=== PATIENT | male | born 1990 | race Caucasian/White ===

== ENCOUNTER 2016-12-15 11:35 | Emergency (ER) | payer OTHER ==
[~2016-12-15] VITALS: Ht 182.9 cm; Wt 65.0 kg
[2016-12-15 11:38] VITALS: BP 118/80; PULSE 92; RESP 24; TEMP 98; O2SAT 97
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
[2016-12-15] MEDS ORDERED: KETOROLAC TROMETHAMINE 30 MG/ML (IVP) VIAL IV PUSH ONE (12:15)
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
[2016-12-15 12:42] LABS: AUTOMATED NEUTROPHIL # 4.3 TH/MM3 (1.8-7.7); BASOPHIL % 0.3 % (0.0-2.0); EOSINOPHIL % 0.3 % (0.0-4.0); HEMATOCRIT 40.3 % (39.0-51.0); LYMPH % 19.7 % (9.0-44.0); LYMPHOCYTE # 1.2 TH/MM3 (1.0-4.8); MEAN CELL VOLUME 91.5 FL (80.0-100.0); MEAN CORPUSCULAR HEMOGLOBIN 32.4 PG (27.0-34.0); MEAN CORPUSCULAR HGB CONC 35.4 % (32.0-36.0); MONO % 10.8 % (0.0-8.0); NEUT % 68.9 % (16.0-70.0); PLATELET COUNT 98 TH/MM3 (150-450); RED BLOOD COUNT 4.41 MIL/MM3 (4.50-5.90); RED CELL DISTRIBUTION WIDTH 12.9 % (11.6-17.2); WHITE BLOOD COUNT 6.2 TH/MM3 (4.0-11.0)
[2016-12-15 12:46] LABS: HEMO FLAGS AUTO DIFF
[2016-12-15 13:12] LABS: PLATELET ESTIMATE SMEAR LOW (NORMAL)
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
[2016-12-15 13:13] LABS: PLATELET MORPHOLOGY NORMAL (NORMAL)
[2016-12-15 13:15] LABS: ALKALINE PHOSPHATASE 66 U/L (45-117); BLOOD UREA NITROGEN 10 MG/DL (7-18); TOTAL BILIRUBIN ADULT 0.7 MG/DL (0.2-1.0)
[2016-12-15 13:17] LABS: ALT (GPT) 78 U/L (12-78); ANION GAP 6 MEQ/L (5-15); AST (GOT) 50 U/L (15-37); BICARBONATE 29.7 MEQ/L (21.0-32.0); CHLORIDE 104 MEQ/L (98-107); GLOMERULAR FILTRATION RATE 90 ML/MIN (>89); SCAN/DIFF AUTO DIFF CONFIRMED; SODIUM (NA) 140 MEQ/L (136-145)
[2016-12-15] MEDS ORDERED: IOHEXOL 350 MG/ML 10 ML VIAL (for RAD DIAG) IV ONE (13:17)
[2016-12-15 13:19] LABS: POTASSIUM 3.9 MEQ/L (3.5-5.1)
[2016-12-15] MEDS ORDERED: IBUP-232 PO (13:48)
[2016-12-15] MEDS ORDERED: ROBA750T PO (13:48)
[2016-12-15] MEDS ORDERED: ACETAMINOPHEN/HYDROcodone 325 MG/5 MG TAB PO ONE (14:00)
== END 2016-12-15 14:56 | disposition home or self-care (01) ==
LOC: NEPC 11:35
DX: R07.89 Other chest pain (principal); M25.572 Pain in left ankle and joints of left foot; R06.02 Shortness of breath; F17.200 Nicotine dependence, unspecified, uncomplicated; V43.52XA Car driver injured in collision with other type car in traffic accident, initial encounter
CPT/HCPCS: 71260; 73610; 80053; 85025; 96374; 99285; J1885; Q9967

== ENCOUNTER 2017-12-22 18:48 | Emergency (ER) | payer SELFPAY ==
[~2017-12-22] VITALS: Ht 182.9 cm; Wt 75.0 kg
[~2017-12-22 18:48] MED LIST: IBUP-232 PO; ROBA750T PO
[2017-12-22 18:50] VITALS: BP 90/54; PULSE 89; RESP 16; TEMP 98.9; O2SAT 98
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
[2017-12-22] MEDS ORDERED: KETOROLAC TROMETHAMINE 60 MG/2 ML (IM) VIAL IM ONE (20:00)
--- NOTE | 2017-12-22 20:39 | RADRPT ---
EXAM DATE: 12/22/2017 7:44 PM EDT AGE/SEX: 27 years / Male INDICATIONS: Right posterior lateral rib pain, fell CLINICAL DATA: This is the patient's initial encounter. Patient reports that signs and symptoms have been present for 1 day and indicates a pain score of 8/10. MEDICAL/SURGICAL HISTORY: None. None. COMPARISON: No prior exams available for comparison. FINDINGS: Multiple views of the bilateral ribs demonstrate no fracture or acute abnormality. No pneumothorax is identified. The visualized surrounding structures demonstrate no acute finding. CONCLUSION: No rib fracture or acute abnormality is identified. Electronically signed by: Capo Alegre MD 12/22/2017 8:38 PM EDT
--- NOTE | 2017-12-22 20:40 | RADRPT ---
EXAM DATE: 12/22/2017 7:46 PM EDT AGE/SEX: 27 years / Male INDICATIONS: Posterior mid thoracic spine pain, fell CLINICAL DATA: This is the patient's initial encounter. Patient reports that signs and symptoms have been present for 1 day and indicates a pain score of 6/10. MEDICAL/SURGICAL HISTORY: None. None. COMPARISON: [facility], SPINE THORACIC AP/LAT/SW (3VW), 12/12/2010. . FINDINGS: 3 views of the thoracic spine demonstrate no fracture or compression deformity. There is no abnormal curvature present. No anterolisthesis or retrolisthesis is present. Disc heights are preserved. There is no significant arthropathy. The visualized surrounding structures demonstrate no abnormality. The lungs are clear. CONCLUSION: No acute abnormality is identified. Electronically signed by: Capo Alegre MD 12/22/2017 8:38 PM EDT
[2017-12-22] MEDS ORDERED: IBUP1TAB7 PO (20:42)
[2017-12-22] MEDS ORDERED: CYCL10TA PO (20:42)
== END 2017-12-22 20:59 | disposition home or self-care (01) ==
LOC: NEPC 18:48
DX: S29.012A Strain of muscle and tendon of back wall of thorax, initial encounter (principal); S20.219A Contusion of unspecified front wall of thorax, initial encounter; W23.0XXA Caught, crushed, jammed, or pinched between moving objects, initial encounter; Y93.89 Activity, other specified
CPT/HCPCS: 71111; 72072; 96372; 99284; J1885